=== PATIENT | male | born 1955 | race Caucasian/White ===

== ENCOUNTER 2025-07-30 06:30 | Day surgery (SDC) | payer MEDICARE, SELFPAY ==
--- OUTSIDE RECORDS SUMMARY | 2025-07-22 10:24 | XMS_ITS | Patient Health Record ---
Author Organization [facility] Address [address] [place] [id number] Care Team Providers Care Supervisor Paper Coating Name Role Phone Donna Jang MD Primary Care Provider Caesar Ulloa Jr Unavailable Allergies No Known Allergies Reason For Referral No Information Medications Medication SIG (Take, Route, Frequency, Duration) Notes Start Date End Date Status Eliquis 5 MG as directed Orally t wice a day Active Metoprolol Tartrate 25 MG TAKE 1 TABLET BY MOUTH TWICE A DAY Oral for 90 Days Active Multivitamin - 1 tablet Orally Once a day Active dilTIAZem HCl ER 240 MG TAKE 1 CAPSULE B Y MOUTH EVERY DAY Oral for 30 Days Activ e Social History Tobacco Use: Social History Observation Description Date Details (start date - stop date) Never Smoker NA - NA Tobacco Control (Standard) Question Answer Notes Tobacco use: Nonsmoker AUDIT-C (Standard) Question Answer Notes Did you have a drink contain ing alcohol in the past year? Yes How often did you have a dri nk containing alcohol in the past year? 2 to 4 times a month (2 points) How many drinks did you have on a typical day when you were drinking in the past year? 1 or 2 drinks (0 point) How often did you have six o r more drinks on one occasion in the past year? 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 Problem History of adenomatous polyp of colon (406359542) History of adenomatous polyp of colon (Z86.0101) Active confirmed Vital Signs Heart Rate 96 /min 07/21/2025 Temperature 97.7 degrees Fahrenheit 07/21/2025 Blood pressure diastolic 01 mm Hg 07/21/2025 Height 73.5 in 07/21/2025 Blood pressure systolic 001 mm Hg 07/21/2025 Weight 223.6 lbs 07/21/2025 BMI 29.1 kg/m2 07/21/2025 Encounters Encounter Location Date Provider Diagnosis [facility] [address] [place] [address] 07/21/2025 Caesar Barbosa Jr Colon cancer screening Z12.11 ; termite exterminator (current) use of anticoagulants Z79.01 and History of adenomatous polyp of colon Z86.0101 Assessments Encounter Date Diagnosis (ICD Code) Assessment Notes Treatment Notes Treatment Clinical Notes Section Notes 07/21/2025 Colon cancer screening (ICD-10 - Z12.11) We discussed colonoscopy today. We discussed risks and benefits of the procedure today. He understands these and agrees to proceed. He is advised to stop Eliquis 3 days before the procedure. 07/21/2025 termite exterminator (current) use of anticoagulants (ICD-10 - Z79.01) We discussed colonoscopy today. We discussed risks and benefits of the procedure today. He understands these and agrees to proceed. He is advised to stop Eliquis 3 days before the procedure. 07/21/2025 History of adenomatous polyp of colon (ICD-10 - Z86.0101) We discussed colonoscopy today. We discussed risks and benefits of the procedure today. He understands these and agrees to proceed. He is advised to stop Eliquis 3 days before the procedure. Plan Of Treatment Future Test Test Name Order Date COLONOSCOPY 07/21/2025 Next Appt Details Provider Name:Caesar dodson Jr, 07/30/2025 10:10:00 AM, [address] [facility] , [place], [place], [id number], Insurance Providers Payer Name Payer Address Payer Phone Subscriber Number Group Number Insured Name Patient Relationship to Insured Coverage Start Date Coverage End Date MEDICARE OF [place] [address] [place], [place] [id number] [phone] [id number] LETICIA OWENS Self - patient is the insured 0 [employer] ATTN CLAIMS [address] [place] [address] [id number] LETICIA OWENS Self - patient is the insured Medical (General) History Medical History History ICD Code WPW syndrome Atrial fibrillation status post ablation Surgical History Surgery Date(Month/Year)
--- OUTSIDE RECORDS SUMMARY | 2025-07-22 10:24 | XMS_ITS | Clinical Summary ---
Author Organization [facility] Address [address] [facility] [address] [place] [id number] Phone Care Team Providers Care Hosiery Bagger Name Role Phone Marian Sarmiento DO Primary Care Provider Medications loratadine (CLARITIN) 10 mg tablet Take 1 tablet by mouth daily. Active multivitamins capsule Orally Active Social History Tobacco Use Types Packs/Day Years Used Date Smoking Tobacco: Never Assessed Education Answer Date Recorded Are you interested in more education? Not on sanya e 03/29/2023 Are you concerned about learning? Not on file 03/29/2023 No 03/29/2023 No 03/29/2023 Digital Access Answer Date Recorded No 04/29/2023 No 04/29/2023 Reliable internet access at home? Not on file 04/29/2023 Device with a working camera? Not on file Sex and Gender Information Value Date Recorded Sex Assigned at Not on file Legal Sex Male 9:55 PM EDT Gender Identity Not on file Sexual Orientation Not on file Last Filed Vital Signs Vital Sign Reading Time Taken Comments Blood Pressure 108/70 03/28/2016 8:41 AM EDT Pulse 94 03/28/2016 8:41 AM EDT Temperature 37 C (98.6 F) 03/28/2016 8:41 AM EDT Respiratory Rate - - Oxygen Saturation - - Inhaled Oxygen Concentration - - Weight 97.1 kg (214 lb) 03/28/2016 8:41 AM EDT Height 187.3 cm (6' 1.75 ) 03/28/2016 8:41 AM ED T Body Mass Index 27.66 03/28/2016 8:41 AM EDT Plan of Treatment Health Maintenance Due Date Last Done Comments DEPRESSION SCREENING 1967 SMOKING Hx and SMOKELESS TOB ACCO SCREENING 1968 HEPATITIS C SCREENING 1973 COLOGUARD 2000 FIT TEST 2000 FOBT 2000 SIGMOIDOSCOPY 2000 VIRTUAL COLONOSCOPY 2000 ZOSTER VACCINES (1 of 2) 2005 PNEUMOCOCCAL VACCINES (50+ y ears) (2 of 2 - PCV) 05/22/2014 05/22/2013 LIPID PANEL 03/28/2021 03/28/2016 Adult Td,Tdap Booster 05/22/2023 05/22/2013 COVID-19 VACCINE (2 - 2023-2 5 season) 2024 02/14/2021 COLONOSCOPY 05/23/2026 05/23/2016 COLORECTAL CANCER SCREENING 05/23/2026 RSV VACCINE (1 - 1-dose 75+ series) 2030 HEPATITIS A VACCINES Aged Out No long er eligible based on patient's age to complete this topic HIB VACCINES Aged Out No longer eligi ble based on patient's age to complete this topic MENINGOCOCCAL VACCINES (ACWY) Aged Out No longer eligible based on patient's age to complete this topic MENINGOCOCCAL VACCINES (B) Aged Out N o longer eligible based on patient's age to complete this topic Medical Devices Not on file Procedures Procedure Name Priority Date/Time Associated Diagnosis Comments OUTSIDE LDL Routine 03/28/2016 from Last 3 Months or Most Recently Relevant to Health Maintenance Results * Outside LDL (03/28/2016) LDL - External 93 50 - 250 mg/ml Historical Provider LAB BLOOD ORDERABLES Temitope l Result from Last 3 Months or Most Recently Relevant to Health Maintenance Insurance [facility] OUT OF STATE PPO [employer]UE [employer] OUT OF STATE PPO [employer]UE [employer] OUT OF STATE PPO BLUE [employer]OSS OUT OF STATE PPO [employer]UE [employer] OUT OF STATE PPO BLUE [employer]OSS OUT OF STATE PPO [employer]UE [employer] OUT OF STATE PPO [facility] OUT OF STATE PPO [facility] OUT OF STATE PPO Care Teams Hosiery Bagger Relationship Specialty Start Date End Date Marian Sarmiento DO [address] [place] [address] PCP - General Internal Medicine 01/07/18 Additional Source Comments The information contained in this document represents components of the legal health record. It is not the complete legal health record.[facility]
--- NOTE | 2025-07-29 15:17 | HO.ANESPROP2 ---
Documented by User: Amy Larry NP 07/29/25 15:25 HPI - Anesthesia Eval Consult details Narrative: 69yo M for Colonoscopy Follows [facility] cardiology. Last office visit 04/2025 with plan for loop monitor and future consideration of cardioversion vs ablation afib - on eliquis WPW s/p ablation [facility] Past Medical History Medical History HTN (hypertension) BPH (benign prostatic hyperplasia) Prostate cancer LIZ (obstructive sleep apnea) WPW (Fgbbi-Uubxfhsdt-Dajdu syndrome) Afib Surgical History Surgical History Hx of colonoscopy History of cardiac ablation for atrial fibrillation Social History Social History Patient Tobacco Use Status: Never used Tobacco Meds Allergies Allergy/AdvReac Type Severity Reaction Status Date / Time No Known Drug Allergies Allergy Unknown Unknown Verified 07/29/25 14:10 Home Medications ?Medication ?Instructions ?Recorded ?Confirmed ?Last Taken ?Type apixaban 5 mg tablet (Eliquis) 5 mg PO BID 07/29/25 07/30/25 07/26/25 History diltiazem HCl 240 mg 240 mg PO DAILY 07/29/25 07/29/25 07/30/25 History capsule,extended release 24 hr, controlled metoprolol tartrate 25 mg tablet 25 mg PO BID 07/29/25 07/29/25 07/30/25 History multivitamin 1 mg PO DAILY 07/29/25 07/30/25 07/28/25 History Exam Pertinent Lab Results Pertinent Lab Results: Narrative Narrative: EKG 04/2025 Ventricular Rate: 93 BPM QRS Duration: 102 ms Q-T Interval: 376 ms QTC Calculation(Bazett): 467 ms R [place]: 14 degrees T [place]: 14 degrees Atrial fibrillation Abnormal ECG When compared with ECG of 28-Jul-2024 10:42, Atrial fibrillation has replaced Sinus rhythm Right bundle branch block is no longer Present Confirmed by HANNAH MCLEAN MD ([id number]) on 04/29/2025 9:22:29 PM ECHO 07/2025 Summary Normal left ventricular size and function with ejection fraction of 60-65%. No focal wall motion abnormalities. The left ventricular wall thickness is mildly increased. The right ventricle is mildly dilated and mildly hypokinetic. There is mild mitral regurgitation. Assessment and Plan Assessment Anesthesia Assessment: Chart Reviewed Documented by User: Enoch Mattson MD 07/30/25 07:43 [facility] Past Medical History Medical History HTN (hypertension) BPH (benign prostatic hyperplasia) Prostate cancer LIZ (obstructive sleep apnea) WPW (Ahdmy-Qqzjpkfkx-Tqvkz syndrome) Afib Functional capacity: independent ambulation Family History Family history of problems with anesthesia: No Surgical History Surgical History Hx of colonoscopy History of cardiac ablation for atrial fibrillation History of Problems with Anesthesia: No Social History Social History Patient Tobacco Use Status: Never used Tobacco Meds Allergies Allergy/AdvReac Type Severity Reaction Status Date / Time No Known Drug Allergies Allergy Unknown Unknown Verified 07/29/25 14:10 Home Medications ?Medication ?Instructions ?Recorded ?Confirmed ?Last Taken ?Type apixaban 5 mg tablet (Eliquis) 5 mg PO BID 07/29/25 07/30/25 07/26/25 History diltiazem HCl 240 mg 240 mg PO DAILY 07/29/25 07/29/25 07/30/25 History capsule,extended release 24 hr, controlled metoprolol tartrate 25 mg tablet 25 mg PO BID 07/29/25 07/29/25 07/30/25 History multivitamin 1 mg PO DAILY 07/29/25 07/30/25 07/28/25 History Exam Exam Date and Time: 07/30/25 Airway Mallampati Class: II TM Dist: >3cm Neck ROM: Full Loose/Missing/Broken Teeth: No Heart: atrial fibrillation Lungs: cta Other: normal Assessment and Plan Final Anesthetic Review Family History of Problems with Anesthesia: No History of Problems with Anesthesia: No NPO: Yes ASA Class: II Final Preanesthetic Review: Meds/Allgs Chart Reviewed, Consent Obtained/Reviewed and Anes Risks/Benef Reviewed Patient Risk: Intermediate Anesthetic Plan Anesthetic Plan: MAC: Disposition: Standard PACU and Inp. Admit - ICU
[2025-07-30 05:31] VITALS: BMI 29.1
[2025-07-30 06:45] VITALS: BP 96/57; PULSE 101; RESP 18; TEMP 36.9; O2SAT 95; BMI 28.2
[2025-07-30] MEDS: Lactated Ringers 1,000 ML 100 ML IVCONT (07:08)
--- NOTE | 2025-07-30 07:36 | MHC.SHP ---
Pre-Procedural Eval Section A - 24 Hr Update-Section A only Date of Service: 07/30/25 The patient is an INPATIENT: No Changes since office visit: Yes Cold of Flu in the past 2 weeks, Yes New Medical Problems, Yes Changes in Medication and Yes Patient answered all questions The patient has been examined within 24 hours of the surgical procedure. The History & Physical has been completed within 30 days and I have reviewed it.: Yes Section B - Complete if H&P > 30 days Chief Complaint: screening Allergies: Allergies Allergy/AdvReac Type Severity Reaction Status Date / Time No Known Drug Allergies Allergy Unknown Unknown Verified 07/29/25 14:10 Plan I have reviewed the history and physical and performed a pertinent physical examination on my patient. No changes have occurred unless specified. Time Spent With Patient Time: Total time managing care of this patient today ____ minutes.
[2025-07-30 08:25] VITALS: BP 87/53; PULSE 90; RESP 16; TEMP 36.4; O2SAT 95
[2025-07-30 08:40] VITALS: BP 111/71; PULSE 77; RESP 20; TEMP 36.8; O2SAT 97
--- NOTE | 2025-07-30 09:22 | OP_ITS ---
DATE OF SERVICE: 07/30/2025 SURGEON: Caesar Barbosa MD INDICATIONS: Colon cancer screening and prior history of adenomatous colon polyps. PREOPERATIVE DIAGNOSIS: POSTOPERATIVE DIAGNOSIS: PROCEDURE PERFORMED: Colonoscopy to the terminal ileum with biopsy and snare polypectomy. ESTIMATED BLOOD LOSS: COMPLICATIONS: ANESTHESIA: Monitored anesthesia care. ASSISTANTS: SPECIMENS: DESCRIPTION OF PROCEDURE: A history and physical was performed. The risks and benefits of the procedure were explained to the patient. Informed consent was obtained. The patient was placed in the left lateral decubitus position. A digital rectal exam was performed and was found to be normal. The Olympus pediatric video colonoscope was introduced into the rectum and advanced to the cecum. The cecum was identified by transillumination, palpation, and identification of ileocecal valve. Examination was performed. The scope was removed. He tolerated the procedure well and was returned to the recovery area in stable condition. FINDINGS: The terminal ileum was normal. The quality of the prep was good. Multiple polyps were present. These were removed with a combination of biopsy forceps and snare polypectomy. The polyps were located in the right colon x3 at 70 cm and into the rectum. The largest measured approximately 8 mm, which was removed with a cold snare. The others were removed with a biopsy forceps. The large polyp was at 70 cm. There was mild to moderate sigmoid diverticulosis. Retroflexed examination was normal. IMPRESSION: Colon polyps. RECOMMENDATION: Follow up the biopsy results. MD KARAN Bennett/MODL / [id number]
== END 2025-07-30 09:11 | disposition home or self-care (01) ==
PROVIDERS: PCP Family Medicine; Visit Provider Internal Medicine Gastroenterology
PROC: 0DJD8ZZ Inspection of Lower Intestinal Tract, Via Natural or Artificial Opening Endoscopic (ICD-10-PCS; CPT 45378; principal; 2025-07-30 08:20)
DX: Z12.11 Encounter for screening for malignant neoplasm of colon (principal); D12.2 Benign neoplasm of ascending colon; D12.4 Benign neoplasm of descending colon; D12.8 Benign neoplasm of rectum; K57.30 Diverticulosis of large intestine without perforation or abscess without bleeding; Z86.0101 Personal history of adenomatous and serrated colon polyps; I48.91 Unspecified atrial fibrillation; I45.6 Pre-excitation syndrome; Z79.01 Long term (current) use of anticoagulants; Z79.899 Other long term (current) drug therapy
CPT/HCPCS: 45380; 45385; 88305; J2704; J3010